=== PATIENT | female | born 2000 | race Caucasian/White ===

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

== ENCOUNTER 2021-03-23 23:31 | Emergency (ER) | payer MEDICAID ==
[~2021-03-23] VITALS: Ht 160 cm; Wt 46.1 kg
[2021-03-24] MEDS ORDERED: acetaminophen 325mg tablet PO ONE (03:35)
[2021-03-24 03:50] VITALS: BP 116/83
== END 2021-03-24 03:52 | disposition home or self-care (01) ==
LOC: ER 23:31
DX: K05.10 Chronic gingivitis, plaque induced (principal); K08.89 Other specified disorders of teeth and supporting structures; F12.90 Cannabis use, unspecified, uncomplicated
CPT/HCPCS: 99282

== ENCOUNTER 2021-09-27 08:21 | Emergency (ER) | payer MEDICAID ==
[~2021-09-27] VITALS: Ht 162.6 cm; Wt 50.0 kg
[2021-09-27 08:25] VITALS: BP 94/64
[2021-09-27] MEDS ORDERED: dexamethasone sod phosphate 10mg/ml inj PO ONE (09:00)
[2021-09-27] MEDS ORDERED: dexamethasone 0.5 mg/5ml unit-dose oral solution PO SCH (09:00)
[2021-09-27] MEDS ORDERED: LIDOcaine Viscous 15ml cup MM ONE (09:00)
[2021-09-27] MEDS ORDERED: ibuprofen 100 MG/5 ML oral susp PO ONE (09:00)
[2021-09-27] MEDS ORDERED: diphenhydrAMINE 25 MG/10 ML UD oral solution PO ONE (09:00)
--- NOTE | 2021-09-27 09:55 | NUR ---
Pt given and understands d/c instructions. Ambulatory with a steady gait.
== END 2021-09-27 09:55 | disposition home or self-care (01) ==
LOC: ER 08:23
DX: J02.9 Acute pharyngitis, unspecified (principal); Z20.822 Contact with and (suspected) exposure to COVID-19; R50.9 Fever, unspecified; R05.9 Cough, unspecified; F12.90 Cannabis use, unspecified, uncomplicated; Z79.899 Other long term (current) drug therapy
CPT/HCPCS: 87635; 87880; 99284; C9803; J1100; Q0163

== ENCOUNTER 2021-12-02 13:40 | Emergency (ER) | payer MEDICAID ==
[~2021-12-02] VITALS: Ht 162.6 cm; Wt 50.0 kg
[2021-12-02 14:20] VITALS: BP 115/51
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
== END 2021-12-02 16:09 | disposition home or self-care (01) ==
LOC: ER 13:40
DX: S46.912A Strain of unspecified muscle, fascia and tendon at shoulder and upper arm level, left arm, initial encounter (principal); R51.9 Headache, unspecified; R42 Dizziness and giddiness; F12.90 Cannabis use, unspecified, uncomplicated; Z79.899 Other long term (current) drug therapy; Y04.8XXA Assault by other bodily force, initial encounter; Y93.89 Activity, other specified; Y92.89 Other specified places as the place of occurrence of the external cause; Y99.8 Other external cause status
CPT/HCPCS: 73030; 99283

== ENCOUNTER 2024-03-08 17:59 | Emergency (ER) | payer MEDICAID ==
[~2024-03-08] VITALS: Ht 160 cm; Wt 50.0 kg
[2024-03-08] MEDS: ondansetron/PF 4mg/2ml inj IV ONE (18:43)
[2024-03-08] MEDS: morphine 4 MG/ML inj SYRINge IV ONE ×2 (18:44→23:21)
[2024-03-08 18:46] LABS: BASOPHILS % (AUTO) 0.3 % (0-1); EOSINOPHILS % (AUTO) 0.2 % (0-6); HEMOGLOBIN 13.7 g/dl (12.0-16.0); LYMPHOCYTES # (AUTO) 2.2 X10'3 (1.1-4.8); LYMPHOCYTES % (AUTO) 16.9 % (21-51); MEAN CORPUSCULAR HGB CONC 32.7 g/dL (33.0-36.5); MEAN PLATELET VOLUME 10.3 FL (7.4-10.4); MONOCYTES # (AUTO) 0.7 X10'3 (0-0.9); MONOCYTES % (AUTO) 5.1 % (2-12); NEUTROPHILS # (AUTO) 10.1 X10'3 (1.8-7.7); NEUTROPHILS % (AUTO) 77.5 % (42-75); PLATELET COUNT 266 X10'3 (140-440); RED BLOOD COUNT 4.57 X10'6 (4.20-5.60); RED CELL DISTRIBUTION WIDTH 14.5 % (11.5-14.5); WHITE BLOOD COUNT 13.1 X10'3 (4.5-11.0)
[2024-03-08 18:59] LABS: ALANINE AMINOTRANSFERASE 17 U/L (12-78); ALBUMIN 4.6 G/DL (3.4-5.0); ALBUMIN/GLOBULIN RATIO 1.5 (1.1-1.5); ALKALINE PHOSPHATASE 54 IU/L (46-116); ANION GAP 12 (8-16); ASPARTATE AMINO TRANSFERASE 15 U/L (10-37); BILIRUBIN,TOTAL 0.6 MG/DL (0.1-1.0); BLOOD UREA NITROGEN 8 MG/DL (7-18); BUN/CREATININE RATIO 8.1 (10.0-20.0); CALCIUM 9.4 MG/DL (8.5-10.1); CHLORIDE 106 MMOL/L (99-107); CREATININE 0.99 MG/DL (0.40-0.90); GLUCOSE 93 MG/DL (70-104); LIPASE 24 U/L (16-77); POTASSIUM 3.9 MMOL/L (3.5-5.1); SODIUM 140 MMOL/L (135-145); TOTAL CARBON DIOXIDE 21.9 MMOL/L (24-32); TOTAL PROTEIN 7.6 G/DL (6.4-8.2); eCRCL 70 ML/MIN; eGFR 70 ML/MIN
[2024-03-08] MEDS: ketorolac trometh 15mg/ml vial 15 MG/ML ML IV ONE (19:04)
[2024-03-08] MEDS: normal saline 1000ml 1,000 ML IV ONE (21:06)
[2024-03-08 22:49] LABS: URINE HCG NEGATIVE (NEG)
[2024-03-08 23:02] LABS: BILIRUBIN,URINE SMALL (Neg); CLARITY,URINE SLIGHTLY CLOUDY (Clear); GLUCOSE, URINE NEGATIVE (Neg); KETONES,URINE TRACE mg/dl (Neg); LEUKOCYTE ESTERASE ,URINE NEGATIVE (Neg); NITRITES, URINE NEGATIVE (Neg); OCCULT BLOOD,URINE MODERATE (Neg); PH,URINE 5.5 (4.8-8.0); PROTEIN,URINE 30 mg/dl (Neg); UROBILINOGEN,URINE 0.2 E.U/dL (0.2-1.0)
[2024-03-08 23:04] LABS: COLOR,URINE DARK YELLOW (Yellow); UA COLLECTION TYPE CLN CATCH MIDSTREAM
[2024-03-08 23:17] LABS: SQUAMOUS EPITHELIAL CELL,UR MODERATE /LPF (FEW)
[2024-03-08 23:18] LABS: MUCUS STRANDS MODERATE /LPF (Neg)
[2024-03-08 23:19] LABS: BACTERIA,URINE FEW /HPF (Neg); RBC,URINE TNTC /HPF (0-2); WBC,URINE 0-4 /HPF (0-4)
[2024-03-08 23:25] LABS: CAL OXALATE CRYSTALS 1+ /HPF (NEGATIVE)
[2024-03-09] MEDS ORDERED: ONDA-243 PO (00:04)
[2024-03-09] MEDS ORDERED: OXYC-658 PO (00:04)
[2024-03-09] MEDS: ondansetron/PF 4mg/2ml inj IV ONE (00:44)
[2024-03-09 05:09] VITALS: BP 102/53; PULSE 72; RESP 17; TEMP 98.2; O2SAT 100
== END 2024-03-09 05:11 | disposition home or self-care (01) ==
LOC: ER 18:00
DX: M53.3 Sacrococcygeal disorders, not elsewhere classified (principal); F12.90 Cannabis use, unspecified, uncomplicated; Z88.8 Allergy status to other drugs, medicaments and biological substances; Z91.041 Radiographic dye allergy status; Z79.899 Other long term (current) drug therapy
CPT/HCPCS: 36415; 80053; 81001; 81025; 83690; 85025; 96374; 96375; 96376; 99285; J1885; J2270; J2405; J7030

== ENCOUNTER 2024-04-18 03:09 | Emergency (ER) | payer MEDICAID ==
[~2024-04-18] VITALS: Ht 160 cm; Wt 44.2 kg
[~2024-04-18 03:09] MED LIST changes: +ONDA-243 PO
[2024-04-18 03:12] VITALS: BP 116/76; PULSE 95; RESP 17; TEMP 98.3; O2SAT 99
[2024-04-18] MEDS ORDERED: PENI500T2 PO (03:26)
[2024-04-18] MEDS: penicillin V potassium 500mg tablet PO ONE (03:34)
== END 2024-04-18 03:37 | disposition home or self-care (01) ==
LOC: EDSEX 03:09 → ER 03:09
DX: K08.89 Other specified disorders of teeth and supporting structures (principal); K00.6 Disturbances in tooth eruption; F12.90 Cannabis use, unspecified, uncomplicated; Z88.8 Allergy status to other drugs, medicaments and biological substances
CPT/HCPCS: 99283

== ENCOUNTER 2024-05-02 02:47 | Emergency (ER) | payer MEDICAID ==
[~2024-05-02] VITALS: Ht 160 cm; Wt 45.5 kg
[2024-05-02 02:59] VITALS: TEMP 98.6
[2024-05-02] MEDS: ketorolac trometh 15mg/ml vial 15 MG/ML ML IV ONE (03:18)
[2024-05-02] MEDS: acetaminophen 325mg tablet PO ONE (03:18)
[2024-05-02] MEDS ORDERED: HYDR-3965 PO (03:48)
[2024-05-02 04:27] VITALS: BP 110/80; PULSE 80; RESP 16; O2SAT 99
== END 2024-05-02 04:29 | disposition home or self-care (01) ==
LOC: ER 02:47
DX: M53.3 Sacrococcygeal disorders, not elsewhere classified (principal); F12.90 Cannabis use, unspecified, uncomplicated; Z88.8 Allergy status to other drugs, medicaments and biological substances; Z91.041 Radiographic dye allergy status; Z79.899 Other long term (current) drug therapy; Z88.5 Allergy status to narcotic agent
CPT/HCPCS: 96374; 99283; J1885